=== PATIENT | male | born 1975 | race Caucasian/White ===

== ENCOUNTER 2018-11-19 17:31 | Emergency (ER) | payer OTHER ==
[~2018-11-19] VITALS: Ht 182.9 cm; Wt 104.3 kg
[~2018-11-19 17:31] MED LIST: ASPI-605 PO; BENA20TA9 PO; METF-440 PO
--- NOTE | 2018-11-19 18:42 | NUR ---
PT IS IN ROOM #2B WAITING FOR DR CAT EVALUATION.
--- NOTE | 2018-11-19 19:00 | NUR ---
REPORT GIVEN TO CHIEF PROCUREMENT OFFICER SAHARA FRANCO.
--- NOTE | 2018-11-19 19:11 | NUR ---
Patient discharged to home in stable conditon with RX. Written and verbal after care instructions given. Patient verbalizes understanding of instructions.
== END 2018-11-19 19:14 | disposition home or self-care (01) ==
LOC: ER 17:34
DX: E11.9 Type 2 diabetes mellitus without complications (principal); I10 Essential (primary) hypertension; F17.210 Nicotine dependence, cigarettes, uncomplicated; Z88.5 Allergy status to narcotic agent; Z79.82 Long term (current) use of aspirin; Z79.899 Other long term (current) drug therapy
CPT/HCPCS: A4663

== ENCOUNTER 2020-03-30 00:46 | Emergency (ER) | payer OTHER ==
[~2020-03-30] VITALS: Ht 180.3 cm; Wt 102.1 kg
--- NOTE | 2020-03-30 00:57 | NUR ---
PATIENT ARRIVED AT THE ER C/O LEFT EAR PAIN X 2 WKS.
--- NOTE | 2020-03-30 01:58 | NUR ---
Dr. Hernandez at bedside for MSE.
--- NOTE | 2020-03-30 02:04 | NUR ---
Patient eloped from facility. ER physician notified.
== END 2020-03-30 02:05 | disposition left against medical advice (07) ==
LOC: ER 00:50
DX: H60.92 Unspecified otitis externa, left ear (principal); E11.9 Type 2 diabetes mellitus without complications; Z79.84 Long term (current) use of oral hypoglycemic drugs; Z83.3 Family history of diabetes mellitus; Z80.9 Family history of malignant neoplasm, unspecified; I10 Essential (primary) hypertension
CPT/HCPCS: A4663

== ENCOUNTER 2021-03-25 17:47 | Emergency (ER) | payer MEDICAID, OTHER ==
[~2021-03-25] VITALS: Ht 180.3 cm; Wt 99.8 kg
[2021-03-25] MEDS ORDERED: FLUORESCEIN SODIUM 1 MG STRIP ONE (18:59)
[2021-03-25] MEDS ORDERED: TETRACAINE HCL 0.5% OPHT DROP 2 ML BOTTLE ONE (18:59)
[2021-03-25] MEDS ORDERED: FLUORESCEIN SODIUM 1 MG STRIP OP ONE (19:15)
[2021-03-25] MEDS ORDERED: TETRACAINE HCL 0.5% OPHT DROP 2 ML BOTTLE OP ONE (19:15)
[2021-03-25] MEDS ORDERED: SODIUM/POT/SOD CHL OPHT WASH 120 ML BOTTLE OP ONE ×2 (19:15→21:00)
[2021-03-25] MEDS ORDERED: MINERAL OIL/PETROLAT OPHT OINT 3.5 GM TUBE OP ONE (20:15)
[2021-03-25] MEDS ORDERED: METF-886 PO (20:53)
--- NOTE | 2021-03-25 21:03 | NUR ---
For visual acuity test of L eye, pt. unable to read any letters.
[2021-03-25 21:04] VITALS: BP 139/87
--- NOTE | 2021-03-25 21:04 | NUR ---
Patient discharged to home in stable condition. Written and verbal after care instructions given. Patient verbalizes understanding of instructions. Stressed follow up or return to ER for worsening s/s. Patient out of ER with steady gait, no acute signs of distress, VSS, all belongings taken.
== END 2021-03-25 21:07 | disposition home or self-care (01) ==
LOC: ER 17:47
DX: H02.815 Retained foreign body in left lower eyelid (principal); Z18.89 Other specified retained foreign body fragments; I10 Essential (primary) hypertension; E11.9 Type 2 diabetes mellitus without complications; F17.210 Nicotine dependence, cigarettes, uncomplicated; Z79.84 Long term (current) use of oral hypoglycemic drugs; Z79.899 Other long term (current) drug therapy; Z88.6 Allergy status to analgesic agent
CPT/HCPCS: A4217; A4663